=== PATIENT | male | born 2000 | race African-American/Black ===

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

== ENCOUNTER 2018-09-29 19:48 | Emergency (ER) | payer OTHER ==
[~2018-09-29] VITALS: Ht 182.9 cm; Wt 88.6 kg
[2018-09-29 21:15] VITALS: BP 108/76
== END 2018-09-29 21:31 | disposition home or self-care (01) ==
LOC: EMS 19:50
DX: J03.90 Acute tonsillitis, unspecified (principal); J35.1 Hypertrophy of tonsils; F17.210 Nicotine dependence, cigarettes, uncomplicated

== ENCOUNTER 2019-07-01 17:50 | Emergency (ER) | payer OTHER ==
[~2019-07-01] VITALS: Ht 180.3 cm; Wt 100.0 kg
[2019-07-01 19:54] VITALS: BP 121/74
== END 2019-07-01 20:18 | disposition home or self-care (01) ==
LOC: EMS 17:51
DX: M79.641 Pain in right hand (principal); F17.210 Nicotine dependence, cigarettes, uncomplicated
CPT/HCPCS: 99406

== ENCOUNTER 2021-08-21 20:08 | Emergency (ER) | payer OTHER ==
[~2021-08-21] VITALS: Ht 182.9 cm; Wt 106.8 kg
[2021-08-21] MEDS ORDERED: ACETAMINOPHEN 500 MG TABLET PO ONE (20:30)
[2021-08-21] MEDS ORDERED: PERTUSS(ACELL),DIPH,TET VAC/PF 0.5 ML SYRINGE IM. ONE (20:30)
[2021-08-21] MEDS ORDERED: IBUPROFEN 600 MG TABLET PO ONE (20:30)
[2021-08-21 23:00] VITALS: BP 119/65
== END 2021-08-22 | disposition home or self-care (01) ==
LOC: EMS 20:11
DX: S63.622A Sprain of interphalangeal joint of left thumb, initial encounter (principal); F17.210 Nicotine dependence, cigarettes, uncomplicated; W23.0XXA Caught, crushed, jammed, or pinched between moving objects, initial encounter; Y93.89 Activity, other specified; Y92.89 Other specified places as the place of occurrence of the external cause; Y99.8 Other external cause status
CPT/HCPCS: 90471; 90715; 99283